=== PATIENT | female | born 1965 | race Caucasian/White ===

== ENCOUNTER 2023-05-06 13:33 | Emergency (ER) | payer OTHER, SELFPAY ==
[2023-05-06 13:53] VITALS: BP 190/79; PULSE 70; RESP 18; TEMP 37.2; O2SAT 99; BMI 24.0
--- NOTE | 2023-05-06 13:57 | DI.CT.S_ITS ---
PROCEDURE: CT HEAD/BRAIN WO CON INDICATIONS: fall TECHNIQUE: Noncontrast 4.5 mm thick angled axial sections acquired from the foramen magnum to the vertex, with coronal and sagittal reformats. For radiation dose reduction, the following was used: automated exposure control, adjustment of mA and/or kV according to patient size. COMPARISON: None. FINDINGS: Image quality: Excellent. CSF spaces: Basal cisterns are patent. No extra-axial fluid collections. Ventricles are normal in size and shape. Brain: No midline shift. Chronic encephalomalacia and gliosis within the bilateral cerebral hemispheres which appears to be in a watershed distribution No intracranial masses or hemorrhage. Alonzo-white matter interface is normal. Skull and face: Calvarium is intact. Please see separately dictated CT of the face. Sinuses: Visualized sinuses and mastoids are clear. IMPRESSION: No acute intracranial abnormalities. Chronic encephalomalacia and gliosis from prior insult as described above. Dictated by: Javier Castro M.D. on 05/06/2023 at 14:42 Approved by: Javier Castro M.D. on 05/06/2023 at 14:43
--- NOTE | 2023-05-06 13:57 | DI.CT.S_ITS ---
PROCEDURE: CT FACIAL BONES WO CON INDICATIONS: fall TECHNIQUE: Noncontrast 2.5 mm thick axial images acquired from the mandible through the frontal sinuses, with coronal and sagittal reformatting. For radiation dose reduction, the following was used: automated exposure control, adjustment of mA and/or kV according to patient size. COMPARISON: None. FINDINGS: Image quality: Excellent. Bones and teeth: Orbital pitt are intact. Sinus pitt show no fracture or deformity. Comminuted fractures of the bilateral nasal bones and anterior processes of the maxilla with displacement. Comminuted fracture of the nasal septum with displacement.. Visualized portions of the mandible demonstrate no fractures or subluxation. Zygomatic arches are intact. Pterygoid plates are intact. Visualized portions of the skull base and auditory canals are intact. Sinuses: Scattered blood within the maxillary sinuses and ethmoid air cells. Mastoid air cells are aerated. Soft tissues: Soft tissue swelling over the nose. No enlarged lymph nodes. No soft tissue lacerations or debris. Vascular: Visualized vascular structures appear normal in the absence of contrast. Bony vascular foramina and canals are intact. IMPRESSION: Comminuted fractures of the bilateral nasal bones, anterior process of the maxilla and nasal septum. Dictated by: Javier Castro M.D. on 05/06/2023 at 14:38 Approved by: Javier Castro M.D. on 05/06/2023 at 14:41
--- NOTE | 2023-05-06 14:04 | DI.CT.S_ITS ---
PROCEDURE: CT CERVICAL SPINE WO CON INDICATIONS: trauma TECHNIQUE: Noncontrast 3 mm thick sections acquired from the skull base to the T4 level. Sagittal and coronal reformats were then constructed. For radiation dose reduction, the following was used: automated exposure control, adjustment of mA and/or kV according to patient size. COMPARISON: None. FINDINGS: Image quality: Excellent. Bones: No fractures or dislocations. Visualized superior ribs are intact. Degenerative changes of the cervical spine. Soft tissues: Prevertebral soft tissues are normal in thickness. No paravertebral hematomas. No apical pneumothoraces. IMPRESSION: No acute cervical spine fracture or traumatic listhesis. Dictated by: Javier Castro M.D. on 05/06/2023 at 14:44 Approved by: Javier Castro M.D. on 05/06/2023 at 14:45
--- NOTE | 2023-05-06 14:05 | ED_ITS ---
HPI - Head Injury <PAPO Long - Last Filed: 05/06/23 16:19> General Chief complaint: Head Injury Stated complaint: fell down the stairs, laceration on nose Time Seen by Provider: 05/06/23 14:03 Source: patient Mode of arrival: Ambulatory History of Present Illness HPI Narrative: This is a 58-year-old female who presents to the emergency department after she tripped and fell down the stair and landed on her face with a bloody nose, bruising over her left eye. She is not anticoagulated, denies nausea vomiting, denies loss of consciousness, denies weakness or dizziness. Was wearing glasses at the time and her glasses caused an injury over the bridge of her nose, she complains of some pain to left of her nose near her cheek and top of her mouth but denies any intraoral involvement, did not bite her tongue or have any loose teeth. She denies vision changes, weakness, difficulty walking or other complaint, denies having a severe headache, complains of facial pain with mild oozing of blood from her nares. Related Data Previous Rx's Medication Instructions Recorded cephalexin 500 mg capsule 500 mg PO TID 5 days #15 caps 05/06/23 mupirocin 2 % topical ointment 1 applic topical DAILY #15 grams 05/06/23 sodium chloride 0.65 % nasal spray 1 spray intranasal BID PRN dry 05/06/23 aerosol (Saline Mist) nasal passages #44 mL Allergies Allergy/AdvReac Type Severity Reaction Status Date / Time amoxicillin Allergy Verified 05/06/23 13:56 Review of Systems <PAPO Long - Last Filed: 05/06/23 16:19> Review of Systems ROS Unobtainable: All systems reviewed & are unremarkable except as noted in HPI and below Patient History <PAPO Long - Last Filed: 05/06/23 16:19> Social History Smoking Status: Never smoker Smoking Status: Never smoker alcohol intake frequency: 0-2 drinks per day Substance Use Type: does not use Exam <PAPO Long - Last Filed: 05/06/23 16:19> Narrative Exam Narrative: Reviewed vitals signs and nursing notes. General: Pleasant, sitting upright, in no acute distress, well groomed, afebrile HEENT: symmetrical facial expressions, moist mucous membranes, neck is supple, abrasions to the upper lip, across the bridge of her nose, and the lateral left eye, no facial tenderness over the orbital bones bilaterally, no marrero sign or raccoon eyes, contusion to the upper lip without intraoral laceration or loose teeth, pupils are equal and reactive to light, glasses that patient were wearing are 2 damage to wear, her vision is grossly intact, EOMI, denies any eye pain with eye movement. Nares are patent bilaterally however there is clots and mild oozing of blood from the left naris, Afrin was used which helped with hemostasis and patient is still able to breathe through her nose although there is swelling, ecchymosis and congestion CV: regular rate and rhythm, warm extremities Respiratory: normal work of breathing, without tachypnea or hypoxia. GI: abdomen soft, nondistended, without CVA tenderness bilaterally. MSK: moves all extremities, no weakness, normal tone, ambulatory without deficit Skin: brisk capillary refill, without rash or wound Neuro: clear speech and normal cognition, A&O x3, GCS 15, no focal motor or sensation deficits Initial Vital Signs Initial Vital Signs: Vital Signs Temperature 98.9 F 05/06/23 13:53 Pulse Rate 70 05/06/23 13:53 Respiratory Rate 18 05/06/23 13:53 Blood Pressure 190/79 H 05/06/23 13:53 Pulse Oximetry 99 05/06/23 13:53 Oxygen Delivery Method Room Air 05/06/23 13:53 <Khari Shearer DO - Last Filed: 05/07/23 06:57> Initial Vital Signs Initial Vital Signs: Vital Signs Temperature 98.9 F 05/06/23 13:53 Pulse Rate 70 05/06/23 13:53 Respiratory Rate 18 05/06/23 13:53 Blood Pressure 190/79 H 05/06/23 13:53 Pulse Oximetry 99 05/06/23 13:53 Oxygen Delivery Method Room Air 05/06/23 13:53 Course <PAPO Long - Last Filed: 05/06/23 16:19> Orders Ordered: Discontinued Medications Acetaminophen (Acetaminophen 325 Mg Tablet) 650 mg PO NOW ONE Stop: 05/06/23 15:21 Last Admin: 05/06/23 15:47 Dose: 650 mg Documented By: TERENCE Bacitracin (Bacitracin Oint 0.9 Gm Pckt) 1 applic TOP NOW ONE Stop: 05/06/23 15:21 Last Admin: 05/06/23 15:46 Dose: 1 applic Documented By: TERENCE Cephalexin HCl (Cephalexin 250 Mg Capsule) 500 mg PO NOW ONE Stop: 05/06/23 15:23 Last Admin: 05/06/23 15:48 Dose: 500 mg Documented By: TERENCE Diphtheria/Tetanus/Acell Pertussis (Tet,Diph,Pertuss(Acell),Vac/Pf 0.5 Ml Syringe) 0.5 ml IM .ONCE ONE Stop: 05/06/23 15:21 Last Admin: 05/06/23 15:48 Dose: 0.5 ml Documented By: TERENCE Ibuprofen (Ibuprofen 400 Mg Tablet) 600 mg PO NOW ONE Stop: 05/06/23 15:21 Last Admin: 05/06/23 15:46 Dose: 600 mg Documented By: TERENCE Oxymetazoline HCl (Oxymetazoline Nasal [place] 30 Ml) 2 sprays NASAL NOW ONE Stop: 05/06/23 15:21 Last Admin: 05/06/23 15:46 Dose: 2 sprays Documented By: TERNECE Vital Signs Vital signs: Vital Signs - 8 hr 05/06/23 13:53 Temperature 98.9 F Pulse Rate 70 Respiratory Rate 18 Blood Pressure 190/79 H Pulse Oximetry 99 Oxygen Delivery Method Room Air <Khari Shearer DO - Last Filed: 05/07/23 06:57> Orders Ordered: Discontinued Medications Acetaminophen (Acetaminophen 325 Mg Tablet) 650 mg PO NOW ONE Stop: 05/06/23 15:21 Last Admin: 05/06/23 15:47 Dose: 650 mg Documented By: TERENCE Bacitracin (Bacitracin Oint 0.9 Gm Pckt) 1 applic TOP NOW ONE Stop: 05/06/23 15:21 Last Admin: 05/06/23 15:46 Dose: 1 applic Documented By: TERENCE Cephalexin HCl (Cephalexin 250 Mg Capsule) 500 mg PO NOW ONE Stop: 05/06/23 15:23 Last Admin: 05/06/23 15:48 Dose: 500 mg Documented By: JG Diphtheria/Tetanus/Acell Pertussis (Tet,Diph,Pertuss(Acell),Vac/Pf 0.5 Ml Syringe) 0.5 ml IM .ONCE ONE Stop: 05/06/23 15:21 Last Admin: 05/06/23 15:48 Dose: 0.5 ml Documented By: TERENCE Ibuprofen (Ibuprofen 400 Mg Tablet) 600 mg PO NOW ONE Stop: 05/06/23 15:21 Last Admin: 05/06/23 15:46 Dose: 600 mg Documented By: TERENCE Oxymetazoline HCl (Oxymetazoline Nasal [place] 30 Ml) 2 sprays NASAL NOW ONE Stop: 05/06/23 15:21 Last Admin: 05/06/23 15:46 Dose: 2 sprays Documented By: TERENCE Vital Signs Vital signs: Vital Signs - 8 hr 05/06/23 13:53 Temperature 98.9 F Pulse Rate 70 Respiratory Rate 18 Blood Pressure 190/79 H Pulse Oximetry 99 Oxygen Delivery Method Room Air MDM - Head Injury <PAPO Long - Last Filed: 05/06/23 16:19> Imaging Data CT scan - head: Radiologist's Impression: [place] [address] CT Scan Report Signed Patient: Leslie Mart MR#: [id number] : 1965 Acct:[id number] Age/Sex: 58 / F Date of Service: 05/06/23 Loc: ED Accession Number: [id number] ?? Procedure: CT head/brain wo con Ordering Provider: Orin Proctor PROCEDURE:? CT HEAD/BRAIN WO CON ? INDICATIONS:? fall ? TECHNIQUE:? Noncontrast 4.5 mm thick angled axial sections acquired from the foramen magnum to the vertex, with coronal and sagittal reformats.? For radiation dose reduction, the following was used:? automated exposure control, adjustment of mA and/or kV according to patient size.? ? COMPARISON:? None. ? FINDINGS:? Image quality:? Excellent.? ? CSF spaces:? Basal cisterns are patent.? No extra-axial fluid collections.? Ventricles are normal in size and shape.? ? Brain:? No midline shift.? Chronic encephalomalacia and gliosis within the bilateral cerebral hemispheres which appears to be in a watershed distribution No intracranial masses or hemorrhage.? Alonzo-white matter interface is normal.? ? Skull and face:? Calvarium is intact.? Please see separately dictated CT of the face. ? Sinuses:? Visualized sinuses and mastoids are clear.? ? IMPRESSION:? No acute intracranial abnormalities.? Chronic encephalomalacia and gliosis from prior insult as described above. ? ? Dictated by: Javier Castro M.D. on 05/06/2023 at 14:42 ? ? Approved by: Javier Castro M.D. on 05/06/2023 at 14:43 ? CT - cervical spine: Radiologist's Impression: [place] [address] CT Scan Report Signed Patient: Leslie Mart MR#: [id number] : 1965 Acct:[id number] Age/Sex: 58 / F Date of Service: 05/06/23 Loc: ED Accession Number: [id number] ?? Procedure: CT cervical spine wo con Ordering Provider: Orin Proctor PROCEDURE:? CT CERVICAL SPINE WO CON ? INDICATIONS:? trauma ? TECHNIQUE:? Noncontrast 3 mm thick sections acquired from the skull base to the T4 level.? Sagittal and coronal reformats were then constructed.? For radiation dose reduction, the following was used:? automated exposure control, adjustment of mA and/or kV according to patient size.? ? COMPARISON:? None. ? FINDINGS:? Image quality:? Excellent.? ? Bones:? No fractures or dislocations.? Visualized superior ribs are intact.? Degenerative changes of the cervical spine. ? Soft tissues:? Prevertebral soft tissues are normal in thickness.? No paravertebral hematomas.? No apical pneumothoraces.? ? ? IMPRESSION:? No acute cervical spine fracture or traumatic listhesis. ? ? ? Dictated by: Javier Castro M.D. on 05/06/2023 at 14:44 ? ? Approved by: Javier Castro M.D. on 05/06/2023 at 14:45 ? CT facial bones : Radiologist's Impression: [address] [address] [address] Scan Report Signed Patient: Leslie Mart MR#: [id number] : 1965 Acct:[id number] Age/Sex: 58 / F Date of Service: 05/06/23 Loc: ED Accession Number: [id number] ?? Procedure: CT facial bones wo con Ordering Provider: Orin Proctor PROCEDURE:? CT FACIAL BONES WO CON ? INDICATIONS:? fall ? TECHNIQUE:? Noncontrast 2.5 mm thick axial images acquired from the mandible through the frontal sinuses, with coronal and sagittal reformatting.? For radiation dose reduction, the following was used:? automated exposure control, adjustment of mA and/or kV according to patient size.? ? COMPARISON:? None. ? FINDINGS:? Image quality:? Excellent.? ? Bones and teeth:? Orbital pitt are intact.? Sinus pitt show no fracture or deformity.? Comminuted fractures of the bilateral nasal bones and anterior processes of the maxilla with displacement.? Comminuted fracture of the nasal septum with displacement..? Visualized portions of the mandible demonstrate no fractures or subluxation.? Zygomatic arches are intact.? Pterygoid plates are intact.? Visualized portions of the skull base and auditory canals are intact.? ? Sinuses:? Scattered blood within the maxillary sinuses and ethmoid air cells.? Mastoid air cells are aerated.? ? Soft tissues:? Soft tissue swelling over the nose.? No enlarged lymph nodes.? No soft tissue lacerations or debris.? ? Vascular:? Visualized vascular structures appear normal in the absence of contrast.? Bony vascular foramina and canals are intact.? ? IMPRESSION:? ? Comminuted fractures of the bilateral nasal bones, anterior process of the maxilla and nasal septum. ? ? Dictated by: Javier Castro M.D. on 05/06/2023 at 14:38 ? ? Approved by: Javier Castro M.D. on 05/06/2023 at 14:41 ? MDM Narrative Medical decision making narrative: Chief Complaint: fall, head injury Multiple etiologies for patient's complaint considered including, but not limited to: Intracranial hemorrhage, facial fracture, vascular injury, orbital injury cervical spine fracture, soft tissue injury, laceration I have independently reviewed the patient's vital signs and nursing notes as well as prior records if available. Patient complains of neck pain but is nontender on exam, she isn't CT at 14:[address] head without contrast, cervical spine without contrast, and facial bones without contrast. Course of Care: CT cervical spine, head and facial bones obtained due to patient's reported pain with all of these areas and suspect facial bone fractures. Social considerations that may affect disposition: none Questions are addressed and there is agreement with the plan and for follow-up in [place] where patient lives. Her states they no maxillofacial surgeon and the hospital has an Ear Nose and Throat Service. They were given a copy of the CT facial bones on disc and understand that the head CT and cervical spine CT are negative for acute abnormalities.. I consulted with the ED attending physician Dr. Shearer as needed for higher level of care considerations and they were available for discussion and recommendations regarding plan of care and diagnostic testing. Patient is appropriate for outpatient management. She is given a prescription of saline nasal spray, mupirocin ointment, cephalexin for open nasal septum, and bacitracin was applied to her facial abrasions. She was given Afrin to use for acute bleeding from her nares and no septal laceration was noted. #415 - Emergency Medicine: Utilization of CT for Minor Blunt Head Trauma (Adult) Patient is 18 or older, presenting with minor blunt head trauma. Head CT (including cosigned orders) was ordered by an emergency animal caretaker for trauma because the patient: [ ] is vomiting\ severe/dangerous mechanism of injury was identified [x ] is experiencing a severe headache [ ] sustained loss of consciousness [ ] GCS less than 15 [ ] is experiencing amnesia of the event or focal neurologic deficit [ ] sustained injury above the clavicles [ ] is suspected of taking anticoagulant medications [ ] is 65 years or older [ ] is intoxicated Patient has one or more of the following conditions that are excluded from the measure: [ ] Patient has ventricular shunt [ ] Patient has brain tumor [ ] Patient is [ ] Patient has multi-system trauma [ ] Patient taking an antiplatelet medication (excluding aspirin) Discharge Plan Departure Patient Disposition: Home Clinical Impression: Epistaxis due to trauma Fracture of nasal bone Qualifiers: Encounter type: initial encounter Fracture type: closed Qualified Code(s): S02.2XXA - Fracture of nasal bones, initial encounter for closed fracture Closed head injury Qualifiers: Encounter type: initial encounter Qualified Code(s): S09.90XA - Unspecified injury of head, initial encounter Maxillary fracture Qualifiers: Encounter type: initial encounter Fracture type: closed Laterality: left Qualified Code(s): S02.40DA - Maxillary fracture, left side, initial encounter for closed fracture Nasal septum fracture Qualifiers: Encounter type: initial encounter Fracture type: open Qualified Code(s): S02.2XXB - Fracture of nasal bones, initial encounter for open fracture Instructions: DI for Nose Fracture, DI for Closed Head Injury Activity Restrictions/Additional Instructions: *You have been diagnosed with a calculated fracture of your nose, a fracture of the anterior process of the maxilla and fracture of the nasal septum. Please use saline spray for your nose to help the mucosa moist and from crusting. Okay to gently blow your nose to remove the blood clots and if the bleeding starts again use Afrin to help the bleeding stop and apply gentle pressure over the lower part of your nose until the bleeding stops. Try to avoid any heavy lifting or further head injury. You likely have a concussion as well. I am sorry for your pain, please schedule follow-up for evaluation by a maxillofacial specialist or ear nose and throat. You have the CT on disc as well as the printed report. Please take cephalexin to prevent infection due to the open nasal bone fracture. *What to do: *Please continue to take your regular medications as directed. [x] New medication prescriptions sent to your pharmacy: [ [facility]] [ ] New medication written as a paper prescription [ ] No new medications given *Please call and schedule follow up with your primary care provider in 2-3 days, at least for an update. Let them know you were seen in the Emergency Department for the above problem. We will electronically transmit a record of today's note if your PCP or specialist is in our system. *If you do not have a primary care provider please contact [phone] to establish care with one of the [facility] primary care providers. *Return to the Emergency Department for worsening symptoms, inability to keep liquids down, fever greater than 101F, chills, or other concerning symptom. Prescriptions: New cephalexin 500 mg capsule 500 mg PO TID 5 Days Qty: 15 0RF mupirocin 2 % ointment 1 applic topical DAILY Qty: 15 0RF Saline Mist 0.65 % aerosol,spray 1 spray intranasal BID PRN (Reason: dry nasal passages) Qty: 44 0RF Referrals: Hector Martinez, DMD [Physician] - Stand Alone Forms: Patient Portal/API <Khari Shearer DO - Last Filed: 05/07/23 06:57> Cosign ED Attending Allen Attestation: I was immediately available in the department for consultation. Documentation has been reviewed. I agree with assessment and plan.
[2023-05-06] MEDS: BACITRACIN OINT 0.9 GM PCKT 1 APPLIC TOP (15:46)
[2023-05-06] MEDS: IBUPROFEN 400 MG TABLET 600 MG PO (15:46)
[2023-05-06] MEDS: OXYMETAZOLINE NASAL SPRAY 30 ML 2 SPRAYS NASAL (15:46)
[2023-05-06] MEDS: ACETAMINOPHEN 325 MG TABLET 650 MG PO (15:47)
[2023-05-06] MEDS: cephALEXin 250 MG CAPSULE 500 MG PO (15:48)
[2023-05-06] MEDS: TET,DIPH,PERTUSS(ACELL),VAC/PF 0.5 ML SYRINGE IM (15:48)
== END 2023-05-06 16:03 | disposition home or self-care (01) ==
PROVIDERS: Emergency Provider Nurse Practitioner Critical Care Medicine
DX: S02.2XXA Fracture of nasal bones, initial encounter for closed fracture (principal); S02.40DA Maxillary fracture, left side, initial encounter for closed fracture; S02.2XXB Fracture of nasal bones, initial encounter for open fracture; S09.90XA Unspecified injury of head, initial encounter; R04.0 Epistaxis; W01.0XXA Fall on same level from slipping, tripping and stumbling without subsequent striking against object, initial encounter; Z23 Encounter for immunization
CPT/HCPCS: 70450; 70486; 72125; 90471; 99284; 90715